=== PATIENT | female | born 1960 | race Caucasian/White ===

== ENCOUNTER 2022-03-03 23:03 | Emergency (ER) | payer BC ==
[2022-03-03 23:21] VITALS: BP 157/95; PULSE 98; BMI 22.8
== END 2022-03-03 23:32 | disposition home or self-care (01) ==
LOC: FER 23:03
DX: S00.83XA Contusion of other part of head, initial encounter (principal); S09.90XA Unspecified injury of head, initial encounter; W22.8XXA Striking against or struck by other objects, initial encounter
CPT/HCPCS: 99281-25